=== PATIENT | male | born 1960 | race Caucasian/White ===

== ENCOUNTER 2019-04-01 10:16 | Inpatient (IN) | payer SELFPAY ==
[2019-04-01] MEDS ORDERED: KETOROLAC 30 MG/ML INJ ONE (10:55)
[2019-04-01 11:16] LABS: Absolute Lymphocytes (CBC) 1.4 K/uL (0.7-4.9); Hematocrit 41.7 % (39.6-49.0); Lymphocytes % 25.8 % (15.3-44.8); MPV 9.1 fL (7.6-11.3); RBC Red Blood Cell Count 4.11 M/uL (4.33-5.43)
[2019-04-01 11:39] LABS: Albumin 3.6 g/dL (3.4-5.0); Bilirubin Direct 0.2 mg/dL (0-0.2); Bilirubin Total 0.5 mg/dL (0.2-1.0); Potassium 4.9 mmol/L (3.5-5.1); Protein, Total 7.3 g/dL (6.4-8.2)
[2019-04-01 11:40] LABS: Urine Bacteria NONE SEEN /HPF (NONE SEEN); Urine Culture Reflex Order NOT NEEDED; Urine RBC NONE SEEN /HPF (NONE SEEN)
--- NOTE | 2019-04-01 12:36 | RAD REPORT ---
EXAM DESCRIPTION: CTAbdomen Pelvis W Contrast - 04/01/2019 12:00 pm CLINICAL HISTORY: Abdominal pain. R inguinal pain. incarcerated inguinal hernia COMPARISON: No comparisons TECHNIQUE: Biphasic CT imaging of the abdomen and pelvis was performed with 100 ml non-ionic IV cont rast. All CT scans are performed using dose optimization technique as appropriate and may include automated exposure control or mA/KV adjustment according to patient size. FINDINGS: The lung bases are clear. Mild diffuse fatty liver is present. No focal mass or biliary dilatation. The spleen, pancreas, adren al glands and kidneys are within normal limits. No bowel obstruction, free air, free fluid or abscess. Small fat containing umbilical hernia. The angela endix is normal. Moderate to large fat containing right inguinal hernia is seen without evidence of b owel involvement. No evidence of significant lymphadenopathy. No suspicious bony findings. IMPRESSION: Moderate to large right inguinal containing only fat.
--- NOTE | 2019-04-01 13:09 | ER ---
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 Transition of care: patient was not received from another setting of care. Onset of symptoms was March 27, 2019. Risk Assessment: Do you want to hurt yourself or someone else? Patient reports no desire to harm self or others. Initial Sepsis Screen: Does the patient meet any 2 criteria? No. Patient's initial sepsis screen is negative. Does the patient have a suspected source of infection? No. Patient's initial sepsis screen is negative. Care prior to arrival: None. 10:28 Method Of Arrival: Ambulatory hb 10:28 Acuity: KARL 3 hb Historical: - Allergies: 10:30 No Known Allergies; hb - Home Meds: 10:30 levothyroxine oral [Active]; hb - PSHx: 10:30 Hernia repair; hb - Immunization history:: Adult Immunizations up to date. - Social history:: Smoking status: Patient uses tobacco products, denies chronic smoking, but will smoke occasionally. - Ebola Screening: : No symptoms or risks identified at this time. Screenin:35 Abuse screen: Denies threats or abuse. Nutritional screening: No deficits noted. rb1 Tuberculosis screening: No symptoms or risk factors identified. Fall Risk None identified. Assessment: 10:35 General: Appears uncomfortable, Behavior is calm, cooperative, Denies fever. Pain: rb1 Complains of pain in right inguinal area Pain currently is 0 out of 10 on a pain scale. at worst was 10 out of 10 on a pain scale. Aggravated by increased activity. Neuro: Level of Consciousness is awake, alert, obeys commands, Oriented to person, place, time, situation. Cardiovascular: Capillary refill < 3 seconds is brisk in bilateral fingers. Respiratory: Airway is patent Respiratory effort is even, unlabored, Respiratory pattern is regular, symmetrical. GI: No signs and/or symptoms were reported involving the gastrointestinal system. : No signs and/or symptoms were reported regarding the genitourinary system. Derm: Skin is pink, warm \T\ dry. 11:30 Reassessment: Patient appears in no apparent distress at this time. No changes from rb1 previously documented assessment. 12:30 Reassessment: Pt. is resting with eyes closed, respirations even, unlabored. Call light rb1 within reach. Family at bedside. 13:30 Reassessment: Patient appears in no apparent distress at this time. Patient and/or rb1 family updated on plan of care and expected duration. Pain level reassessed. Patient is alert, oriented x 3, equal unlabored respirations, skin warm/dry/pink. Pt. reports only having pain when he gets up and moves around. Patient denies pain at this time. 14:28 Reassessment: Patient appears in no apparent distress at this time. No changes from rb1 previously documented assessment. Pt. is watching TV. 15:28 Reassessment: Patient appears in no apparent distress at this time. Patient and/or rb1 family updated on plan of care and expected duration. Pain level reassessed. Patient is alert, oriented x 3, equal unlabored respirations, skin warm/dry/pink. 15:36 Reassessment: Gave report to EVERT Artis. Information from the SBAR was given. All rb1 questions asked and answered. Vital Signs: 10:30 BP 149 / 104; Pulse 68; Resp 16; Temp 97.9; Pulse Ox 100% on R/A; Weight 88 kg; Height hb 6 ft. (182.88 cm); Pain 10/10; 11:30 BP 126 / 78; Pulse 55; Resp 17; Temp 98.0(O); Pulse Ox 100% on R/A; rb1 12:30 BP 115 / 67; Pulse 49; Resp 18; Temp 98.0(O); Pulse Ox 100% on R/A; Pain 0/10; rb1 13:30 BP 122 / 68; Pulse 43; Resp 15; Temp 98.1(O); Pulse Ox 99% on R/A; rb1 14:30 BP 127 / 75; Pulse 42; Resp 16; Pulse Ox 100% on R/A; Pain 0/10; rb1 15:30 BP 130 / 77; Pulse 41; Resp 15; Pulse Ox 100% on R/A; rb1 10:30 Body Mass Index 26.31 (88.00 kg, 182.88 cm) ED Course: 10:17 Patient arrived in ED. as 10:18 Juventino Narvaez MD is Private Physician. as 10:30 Triage completed. hb 10:30 Arm band placed on. hb 10:35 Patient has correct armband on for positive identification. Placed in gown. Bed in low rb1 position. Call light in reach. Side rails up X 1. Pulse ox on. NIBP on. Warm blanket given. 10:38 Vincenzo Lacy MD is Attending Physician. co 10:50 Michela Hurley, RN is Primary Nurse. rb1 11:05 Inserted saline lock: 22 gauge in right antecubital area, using aseptic technique. rb1 Blood collected. 12:07 CT Abd/Pelvis - IV Contrast Only In Process Unspecified. EDMS 13:07 Shelton Rosa MD is Hospitalizing Provider. co 13:07 EKG done, by traffic survey technician. reviewed by Vincenzo Lacy MD. 3 14:07 Initial lab(s) drawn, by nc, sent to lab. 3 14:07 Hepatitis Panel Sent. jp3 16:00 No provider procedures requiring assistance completed. Patient admitted, IV remains in rb1 place. Administered Medications: 11:06 Drug: Ketorolac 30 mg Route: IVP; Site: right antecubital; rb1 11:30 Follow up: Response: No adverse reaction; Pain is decreased rb1 Outcome: 13:08 Decision to Hospitalize by Provider. wa 16:01 Patient left the ED. rb1 16:01 Admitted to Med/surg accompanied by tech, via wheelchair, room 204, with chart, Report rb1 called to EVERT Artis 16:01 Condition: stable rb1 16:01 Instructed on the need for admit. Signatures: Dispatcher [employer] Deysi Razo Rebecca, RN RN [facility] Faina Comer, EVERT RN Vincenzo Lacy MD MD co Marilee Rubio 3 Rajeev Moore 3
--- NOTE | 2019-04-01 13:10 | EDPHYS ---
Physician Documentation [facility] Name: Shelton Forrest Jr Age: 59 yrs Sex: Male : 1960 Arrival Date: 04/01/2019 Time: 10:17 Bed 13 Private MD: Juventino Narvaez ED Physician Vincenzo Lacy HPI: 04/01 10:49 This 59 yrs old Male presents to ER via Ambulatory with complaints of wa Inguinal Hernia Pain. 10:49 The patient presents with swelling, of the right inguinal area, tenderness, of the wa right inguinal area. Onset: The symptoms/episode began/occurred yesterday. Modifying factors: The symptoms are alleviated by nothing, the symptoms are aggravated by movement. Associated signs and symptoms: The patient has no apparent associated signs or symptoms. Severity of symptoms: At their worst the symptoms were moderate, in the emergency department the symptoms are unchanged. The patient has experienced similar episodes in the past. The patient has not recently seen a physician. states has bilateral inguinal hernias and another periumbilical for years. had R inguinal side repaired 12 years ago but surgery did not work. states began having pain yesterday. radiates down the R leg. denies nausea, vomiting, or problems with urination. Historical: - Allergies: 10:30 No Known Allergies; hb - Home Meds: 10:30 levothyroxine oral [Active]; hb - PSHx: 10:30 Hernia repair; hb - Immunization history:: Adult Immunizations up to date. - Social history:: Smoking status: Patient uses tobacco products, denies chronic smoking, but will smoke occasionally. - Ebola Screening: : No symptoms or risks identified at this time. ROS: 10:59 Constitutional: Negative for fever, chills, and weight loss, Eyes: Negative for injury, wa pain, redness, and discharge, ENT: Negative for injury, pain, and discharge, Neck: Negative for injury, pain, and swelling, Cardiovascular: Negative for chest pain, palpitations, and edema, Respiratory: Negative for shortness of breath, cough, wheezing, and pleuritic chest pain, Back: Negative for injury and pain, MS/Extremity: Negative for injury and deformity, Skin: Negative for injury, rash, and discoloration, Neuro: Negative for headache, weakness, numbness, tingling, and seizure, Psych: Negative for depression, anxiety, suicide ideation, homicidal ideation, and hallucinations. 10:59 Abdomen/GI: Positive for firm bulge (reducible) directly above the umbilicus. also R inguinal bulge (partially reducible) . 10:59 : Positive for R inguinal hernia. 10:59 All other systems are negative. Exam: 11:01 Constitutional: This is a well developed, well nourished patient who is awake, alert, wa and in no acute distress. Head/Face: Normocephalic, atraumatic. Eyes: Pupils equal round and reactive to light, extra-ocular motions intact. Lids and lashes normal. Conjunctiva and sclera are non-icteric and not injected. Cornea within normal limits. Periorbital areas with no swelling, redness, or edema. ENT: Nares patent. No nasal discharge, no septal abnormalities noted. Tympanic membranes are normal and external auditory canals are clear. Oropharynx with no redness, swelling, or masses, exudates, or evidence of obstruction, uvula midline. Mucous membranes moist. Neck: Trachea midline, no thyromegaly or masses palpated, and no cervical lymphadenopathy. Supple, full range of motion without nuchal rigidity, or vertebral point tenderness. No Meningismus. Chest/axilla: Normal chest wall appearance and motion. Nontender with no deformity. No lesions are appreciated. Cardiovascular: Regular rate and rhythm with a normal S1 and S2. No gallops, murmurs, or rubs. Normal PMI, no JVD. No pulse deficits. Respiratory: Lungs have equal breath sounds bilaterally, clear to auscultation and percussion. No rales, rhonchi or wheezes noted. No increased work of breathing, no retractions or nasal flaring. Back: No spinal tenderness. No costovertebral tenderness. Full range of motion. Skin: Warm, dry with normal turgor. Normal color with no rashes, no lesions, and no evidence of cellulitis. MS/ Extremity: Pulses equal, no cyanosis. Neurovascular intact. Full, normal range of motion. Neuro: Awake and alert, GCS 15, oriented to person, place, time, and situation. Cranial nerves II-XII grossly intact. Motor strength 5/5 in all extremities. Sensory grossly intact. Cerebellar exam normal. Normal gait. Psych: Awake, alert, with orientation to person, place and time. Behavior, mood, and affect are within normal limits. 11:01 Abdomen/GI: Inspection: abdomen appears normal, Bowel sounds: normal, in all quadrants, Palpation: moderate abdominal tenderness, in the R groin, Hernia: noted in the umbilical area and right inguinal area, incarceration, that is moderate, tenderness, that is moderate. Vital Signs: 10:30 BP 149 / 104; Pulse 68; Resp 16; Temp 97.9; Pulse Ox 100% on R/A; Weight 88 kg; Height hb 6 ft. (182.88 cm); Pain 10/10; 11:30 BP 126 / 78; Pulse 55; Resp 17; Temp 98.0(O); Pulse Ox 100% on R/A; rb1 12:30 BP 115 / 67; Pulse 49; Resp 18; Temp 98.0(O); Pulse Ox 100% on R/A; Pain 0/10; rb1 13:30 BP 122 / 68; Pulse 43; Resp 15; Temp 98.1(O); Pulse Ox 99% on R/A; rb1 14:30 BP 127 / 75; Pulse 42; Resp 16; Pulse Ox 100% on R/A; Pain 0/10; rb1 15:30 BP 130 / 77; Pulse 41; Resp 15; Pulse Ox 100% on R/A; rb1 10:30 Body Mass Index 26.31 (88.00 kg, 182.88 cm) hb MDM: 10:38 Patient medically screened. ca 11:02 Differential diagnosis: umbilical hernia reducible. R groin hernia difficult to reduce. wa will r/o strangulation with CT. will reassess. 12:16 Data reviewed: lab test result(s). Test interpretation: by ED physician or midlevel ca provider: labs notable for mildly elevated AST and ALT. 13:05 Test interpretation: by ED physician or midlevel provider: CT noted for fat-containing ca R inguinal hernia. Response to treatment: the patient's symptoms have mildly improved after treatment. Physician consultation: Shelton Rosa MD. Admission orders: after a detailed discussion of the patient's condition and case, the admit orders are written by me. ED course: spoke with Dr. Rosa about pt. h/o hernia. now With increased pain. needs eval for repair. accepted pt for further eval. 13:08 Special discussion: noted fatty liver and mild elevation in LFTs. counseled against ca ETOH. will check hepatitis panel. 04/01 10:48 Order name: Basic Metabolic Panel; Complete Time: 12:15 ca 04/01 10:48 Order name: CBC with Diff ca 04/01 10:48 Order name: Hepatic Function; Complete Time: 12:15 ca 04/01 10:49 Order name: Urine Microscopic Only; Complete Time: 12:15 ca 04/01 11:27 Order name: Urine Dipstick--Ancillary (enter results) 04/01 13:09 Order name: Hepatitis Panel ca 04/01 10:48 Order name: IV Saline Lock; Complete Time: 11:10 ca 04/01 10:48 Order name: Labs collected and sent; Complete Time: 11:10 ca 04/01 10:48 Order name: CT Abd/Pelvis - IV Contrast Only; Complete Time: 12:47 ca 04/01 13:21 Order name: Basic Metabolic Panel [facility] 04/01 13:21 Order name: Basic Metabolic Panel [facility] 04/01 13:21 Order name: CBC with Automated Diff [facility] 04/01 13:21 Order name: CBC with Automated Diff [facility] 04/01 10:49 Order name: Urine Dipstick-Ancillary (obtain specimen); Complete Time: 11:23 ca Administered Medications: 11:06 Drug: Ketorolac 30 mg Route: IVP; Site: right antecubital; rb1 11:30 Follow up: Response: No adverse reaction; Pain is decreased rb1 Disposition: 04/01/19 13:08 Hospitalization ordered by Shelton Rosa for Inpatient Admission. Preliminary diagnosis are Acute Right Inguinal pain, Right Inguinal Hernia. - Bed requested for Telemetry/MedSurg (Inpatient). - Status is Inpatient Admission. rb1 - Condition is Stable. - Problem is new. - Symptoms have improved. UTI on Admission? No Signatures: Dispatcher [employer] [facility] Jane Stern Rebecca, RN RN [facility] Faina Comer RN RN Vincenzo Lacy MD MD ca Corrections: (The following items were deleted from the chart) 15:12 13:08 Hospitalization Ordered by Shelton Rosa MD for Inpatient Admission. Preliminary bd diagnosis is Acute Right Inguinal pain; Right Inguinal Hernia. Bed requested for Telemetry/MedSurg (Inpatient). Status is Inpatient Admission. Condition is Stable. Problem is new. Symptoms have improved. UTI on Admission? No. wa 16:01 15:12 04/01/2019 13:08 Hospitalization Ordered by Shelton Rosa MD for Inpatient rb1 Admission. Preliminary diagnosis is Acute Right Inguinal pain; Right Inguinal Hernia. Bed requested for Telemetry/MedSurg (Inpatient). Status is Inpatient Admission. Condition is Stable. Problem is new. Symptoms have improved. UTI on Admission? No. bd
[2019-04-01] MEDS ORDERED: MORPHINE 2 MG/ML SYR IV PRN (13:16)
[2019-04-01] MEDS ORDERED: ONDANSETRON 4 MG/2 ML VIAL IV PRN (13:16)
[2019-04-01 16:12] VITALS: BMI 26.3
[2019-04-01] MEDS: D5 0.45 NS 1,000 ML IV SCH (16:16)
[2019-04-01 20:37] LABS: Urine Specific Gravity 1.015 (1.005-1.030)
[2019-04-01 20:38] LABS: Urine Blood NEGATIVE (NEG); Urine Glucose NEGATIVE (NEG); Urine Protein NEGATIVE (NEG)
--- NOTE | 2019-04-01 23:05 | P.HP ---
Date of Service: 04/01/19 PC: This 59-year-old male presents emergency room with severe right groin pain radiating down to [facility] for diagnosis and treatment. HPC: Patient states he has had a bulge in that right groin for the last few months. Has been causing him increasing pain in discomfort. Could no longer stand the came to the emergency room for evaluation today. PMH: Negative PSHx: Previous right inguinal hernia repair SOC: No known allergies, takes no other medications SYS REVIEW: No cough, wheeze, shortness of breath. No chest pain or palpitations. Denies any urinary issues. No change in bowel habit. O/E awake alert vital signs are stable HEENT: Not jaundice Chest: Chest movement equal bilateral ABD: Soft, has small umbilical hernia. Patient has a large right inguinal hernia. Scar on the outside indicative of probable open procedure in the past. Also has a smaller left inguinal hernia. Both these appear to be reducible at this time. LOCO: Intact DATA: Within normal limits IMPRESSION: This patient, presented with pain and discomfort to the emergency room earlier today. He was admitted. I will make him NPO in taken to the operating room in the morning for a laparoscopic repair of these bilateral inguinal hernias, suture repair of umbilical hernia PLAN: I have discussed the risks of this procedure with the patient. The possibility of bleeding, infection, chronic pain, injury to blood vessels and surrounding structures. The possible need for an open procedure to repair these hernias was described. The use of mesh and the potential complications were outlined. Recurrence and mesh infection were explained. He understands and wants to proceed.
[2019-04-02] MEDS: D5 0.45 NS 1,000 ML IV SCH ×2 (02:10→10:00)
[2019-04-02 06:19] LABS: Absolute Lymphocytes (CBC) 1.1 K/uL (0.7-4.9); Basophils % 1.3 % (0-1.3); Hematocrit 41.1 % (39.6-49.0); Lymphocytes % 32.3 % (15.3-44.8); MPV 9.1 fL (7.6-11.3); RBC Red Blood Cell Count 4.01 M/uL (4.33-5.43)
[2019-04-02 06:35] LABS: Potassium 4.1 mmol/L (3.5-5.1)
[2019-04-02] MEDS ORDERED: Ringers Lactate 1,000 ML IV ONE ×2 (06:50→09:29)
[2019-04-02] MEDS ORDERED: PROPOFOL 200 MG/20 ML VIAL IV ONE (07:03)
[2019-04-02] MEDS ORDERED: MIDAZOLAM HCL 2 MG/2 ML INJ ONE (07:04)
[2019-04-02] MEDS ORDERED: ROCURONIUM 50 MG/5 ML VIAL IV ONE (07:04)
[2019-04-02] MEDS ORDERED: LIDOCAINE 1% MPF 5 ML VIAL ONE (07:04)
[2019-04-02] MEDS ORDERED: FENTANYL CITR 100 MCG/2 ML ONE ×2 (07:04→08:38)
--- NOTE | 2019-04-02 07:27 | EKG ---
Test Date: 2019-04-01 Test Time: 12:58:43 Duct Layer Helper: JENNA MEASUREMENT RESULTS: Intervals: Rate: 48 [place]: 180 QRSD: 112 QT: 470 QTc: 419 [place]: P: 60 AZ: 180 QRS: 69 T: 39 INTERPRETIVE STATEMENTS: Marked sinus bradycardia Incomplete right bundle branch block Abnormal ECG No previous ECG available for comparison Electronically Signed On 04-02-19 07:25:42 CDT by Aleksandar Nicholson
[2019-04-02] MEDS ORDERED: CEFAZOLIN/SWI 1gm 1 GM/10 ML SYR ONE (07:43)
[2019-04-02] MEDS ORDERED: NEOSTIGMINE 1 MG/ML -10 ML VIAL ONE (08:41)
[2019-04-02] MEDS ORDERED: KETOROLAC 30 MG/ML INJ ONE (08:41)
[2019-04-02] MEDS ORDERED: ONDANSETRON 4 MG/2 ML VIAL ONE (08:41)
[2019-04-02] MEDS ORDERED: GLYCOPYRROLATE 0.2 MG/ML SYR ONE (08:41)
[2019-04-02] MEDS ORDERED: HYDROMORPHONE HCL 1 MG/ML INJ ONE (09:55)
[2019-04-02 10:14] VITALS: O2SAT 98
[2019-04-02] MEDS ORDERED: ONDANSETRON 4 MG/2 ML VIAL IV PRN (10:37)
[2019-04-02] MEDS ORDERED: Ringers Lactate 1,000 ML IV SCH (11:00)
[2019-04-02 12:01] VITALS: TEMP 97.7
[2019-04-02] MEDS: MORPHINE 4 MG/ML SYR IV PRN ×2 (12:26→16:39)
--- NOTE | 2019-04-02 15:15 | P.OP ---
Preoperative diagnosis: Umbilical hernia, 2 inguinal hernias Postoperative diagnosis: The same Primary procedure: Laparoscopic repair of bilateral inguinal hernias with mesh Anesthesia: General Estimated blood loss: Less than 10 cc Specimen: And sign Operative Technique: The patient brought the operating room placed supine on the table. After the induction of adequate general endotracheal anesthesia, a Sun catheter was inserted. The abdomen was then prepped in the usual aseptic manner. A subumbilical incision was made. This brought down through the skin and subcutaneous tissue. We encounter the fascia over the rectus muscle. This was opened. The balloon dissect was now passed down towards the pubic symphysis and inflated. This [employer] peritoneal space having mean developed the dissecting balloon was removed and the structural balloon left in place. Under direct vision 2 5 mm trocars were now placed in the lower midline. On inspection of the right side we were able dissect down and expose the anterior abdominal wall the right. We could see with the patient had a previous repair. There was also a large direct inguinal hernia in this area as well as an indirect. The spermatic cord was identified. It was cleared of its hernia sac. There was also a large pseudo lipoma of the cord on that side which was dissected back well from the abdominal wall. The indirect hernia was identified dissected back ran the sac and were was allowed to retract back into the defect. A piece of mesh was pushed over this area. It was then tacked in place using the Pro Tacker. It was fixated medially with 1 tack lightly placed towel out laterally. Attention was now turned towards the left side. Once again we dissected out and expose the spermatic cord. There was a large indirect hernia on this side. A small direct hernia was noted. A piece of mesh was then introduced into the pre peritoneal space and placed against the anterior abdominal wall. It was then fixed in place with a Pro Tacker. 0.25% Marcaine was not aerosolized into this area. The preperitoneal space was deflated see the mid perineum an intestinal contents rolling up on top of the mesh making sure it did not go under. Excellent coverage was obtained. At this point we looked down for umbilical hernia. Gentle dissection was done around this area. The actual defect is well above the umbilicus, and per CT scan was very small in size. I a left this alone as his main complaint was is groin pain more markedly on the right-hand side. At this point the skin was now closed with miguel. At the end of procedure he was stable when sent to the recovery room. Instrument and needle counts were correct.
[2019-04-02 16:47] VITALS: BP 144/79
[2019-04-04 05:07] LABS: HBsAG Nonreactive (Nonreactive)
[2019-04-04 19:11] LABS: Hep C Virus RNA (PCR)log 6.62 log IU/mL
== END 2019-04-02 18:40 | disposition home or self-care (01) | DRG 352 ==
LOC: ER 10:16 → ERHOLD 13:15 → 2ND 15:37
PROVIDERS: ADMIT Surgery; ATTEND Surgery
PROC: 0YUA4JZ Supplement Bilateral Inguinal Region with Synthetic Substitute, Percutaneous Endoscopic Approach (ICD-10-PCS; principal; 2019-04-02 07:30)
DX: K40.20 Bilateral inguinal hernia, without obstruction or gangrene, not specified as recurrent (principal); K42.9 Umbilical hernia without obstruction or gangrene
CPT/HCPCS: 36415; 74177; 80048; 80074; 80076; 81003; 81015; 85025; 87522; 93005; 96374; 99285; J0690; J1170; J2250; J2270; J2405; J2704; J2710; J3010; Q9967